=== PATIENT | female | born 1935 | race Caucasian/White ===

== ENCOUNTER 2017-01-28 22:41 | Emergency (ER) | payer OTHER ==
[2017-01-28 23:18] VITALS: PULSE 76; BMI 20.8
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
[2017-01-29 00:23] LABS: BASOPHIL 1.2 % (0-2.0); EOSINOPHIL 2.5 % (0-4.5); MCH 25.7 pg (25.7-33.7); MCHC 31.9 g/dl (32.0-36.0); MEAN CELL VOLUME 80.7 fl (80-96); MEAN PLT VOLUME 8.5 fl (7.5-11.1); PLATELET COUNT 295 K/MM3 (134-434); WHITE BLOOD COUNT 8.4 K/mm3 (4.0-10.0)
[2017-01-29 00:52] LABS: ALBUMIN 3.6 g/dl (3.4-5.0); ANION GAP 12 (8-16); BILIRUBIN,TOTAL 0.3 mg/dL (0.2-1.0); CALCIUM 9.5 mg/dL (8.5-10.1); CO2 27 mmol/L (21-32); COCKROFT - GAULT 51.425; CREATININE 0.7 mg/dL (0.55-1.02); GLUCOSE,RANDOM 132 mg/dL (74-106); SGOT/AST 27 U/L (15-37); SGPT/ALT 30 U/L (12-78); TOT PROT 7.2 g/dl (6.4-8.2)
[2017-01-29 00:53] LABS: ALK PHOS 111 U/L (45-117); TROPONIN I < 0.02 ng/ml (0.00-0.05)
[2017-01-29] MEDS ORDERED: ACETAMINOPHEN 500 MG TABLET (FP) PO ONE (01:46)
[2017-01-29 01:48] VITALS: BP 120/82; TEMP 97.5
[2017-01-29] MEDS ORDERED: ACETAMINOPHEN 325 MG TABLET (FP) ONE (01:54)
--- NOTE | 2017-01-31 12:50 | EKG ---
Test Reason : Blood Pressure : / mmHG Vent. Rate : 072 BPM Atrial Rate : 072 BPM P-R Int : 158 ms QRS Dur : 090 ms QT Int : 428 ms P-R-T Axes : 067 027 094 degrees QTc Int : 468 ms NORMAL SINUS RHYTHM POSSIBLE LEFT ATRIAL ENLARGEMENT POSSIBLE INFERIOR INFARCT , AGE UNDETERMINED ABNORMAL ECG NO PREVIOUS ECGS AVAILABLE Confirmed by SANAM MACIAS MD ([id number]) on 01/31/2017 12:50:15 PM Referred By: Confirmed By:SANAM MACIAS MD
== END 2017-01-29 02:04 | disposition home or self-care (01) ==
LOC: JER 22:41
DX: S20.211A Contusion of right front wall of thorax, initial encounter (principal); V43.62XA Car passenger injured in collision with other type car in traffic accident, initial encounter; W22.12XA Striking against or struck by front passenger side automobile airbag, initial encounter; Y92.414 Local residential or business street as the place of occurrence of the external cause; Y93.89 Activity, other specified
CPT/HCPCS: 36415; 71020-TC; 80053; 82550; 84484; 85025; 93005; 93010; 99283-25